=== PATIENT | male | born 1960 | race Hispanic/Latino ===

== ENCOUNTER 2020-12-11 16:39 | Emergency (ER) | payer OTHER, MEDICAID, SELFPAY ==
[2020-12-11 16:46] VITALS: BP 146/81; PULSE 96; RESP 22; TEMP 36.9; O2SAT 97
--- NOTE | 2020-12-11 16:58 | ED_ITS ---
HPI - Back Pain/Injury <Kirill Rodas, DO - Last Filed: 12/12/20 14:47> General Chief Complaint: Back Pain/Injury Stated Complaint: back pain, cant move Time Seen by Provider: 12/11/20 16:58 Source: patient and family Mode of arrival: Wheelchair Limitations: no limitations History of Present Illness HPI Narrative: 60-year-old male nonsmoker with history of hyperlipidemia type 2 diabetes and hypertension presents with a chief complaint of acute on chronic low back pain. He has had problems with low back pain for many years and actually had an L&I claim years ago. He was pulling weeds in his garden a few days ago and felt a sudden pain in his lower back with radiation down his right leg. He states it is sharp and stabbing and significantly worse with motion while and improves slightly with rest. He has had no fever or chills, denies any specific trauma takes no blood thinners. He has no lower extremity weakness or foot drop. He denies the loss of control of bowel or bladder. He was seen and evaluated a few days ago at an outside facility, had a reported negative x- ray and was given prescriptions for Flexeril and tramadol. Denies improvement MD Complaint: back pain and back injury Onset (ago): day(s) Duration: constant Similar Symptoms Previously: Yes Location: lumbar spine Severity: moderate Quality: burning, sharp and stabbing Radiation: right leg Relieving factors: immobilization Exacerbating factors: movement and walking Context: while lifting and turning/twisting Associated symptoms: denies other symptoms Related Data Home Medications Medication Instructions Recorded Confirmed gabapentin [Neurontin] 300 mg PO TID #0 04/06/16 glyburide 5 mg PO QDAY #0 04/06/16 hydrocodone-acetaminophen [Vicodin 1 tab PO Q4HP PRN #0 tab 04/06/16 ES] lisinopril 20 mg PO QDAY #0 04/06/16 metformin [Glucophage XR] 500 mg PO QDAY #0 04/06/16 oxycodone [OxyContin] 10 mg #0 04/06/16 simvastatin 40 mg PO QDAY #0 04/06/16 Previous Rx's Medication Instructions Recorded ketorolac 10 mg PO Q6HP PRN #20 tab 04/06/16 hydrocodone-acetaminophen 1 tab PO Q6H PRN #12 tab 12/11/20 prednisone 40 mg PO DAILY 6 Days #12 tab 12/11/20 Allergies Allergy/AdvReac Type Severity Reaction Status Date / Time No Known Drug Allergies Allergy Verified 12/11/20 17:37 Review of Systems <Kirill Rodas DO - Last Filed: 12/12/20 14:47> Constitutional Constitutional: Denies chills, Denies fatigue, Denies fever(s), Denies frequent falls, Denies lethargy and Denies weakness Eyes Eyes: Denies change in vision, Denies eye discharge, Denies irritation and Den ies loss of vision ENT Ears, Nose, Mouth, and Throat: Denies change in voice, Denies dizziness, Denies neck pain, Denies sore throat and Denies throat swelling Cardiovascular Cardiovascular: Denies chest pain, Denies irregular heart rhythm, Denies lightheadedness, Denies palpitations, Denies dyspnea, Denies dyspnea on exertion and Denies orthopnea Respiratory Respiratory: Denies cough, Denies dyspnea, Denies dyspnea on exertion and Denies wheezing Gastrointestinal Gastrointestinal: Denies abdominal pain, Denies change in bowel habits, Denies diarrhea, Denies nausea and Denies vomiting Musculoskeletal Musculoskeletal: Reports back pain, Denies neck pain and Denies numbness Integumentary/Breasts Skin/Breast: Denies pruritus, Denies erythema, Denies rash and Denies wounds Neurologic Neurologic: Denies behavioral changes, Denies confusion, Denies dizziness, Denies frequent falls, Denies loss of vision, Denies numbness and Denies weakness Psychiatric Psychiatric: Denies anxiety, Denies behavioral changes, Denies confusion, Denies depression, Denies homicidal ideation and Denies suicidal ideation Endocrine Endocrine: Denies fatigue, Denies flushing and Denies palpitations Hematologic/Lymphatic Hematologic/Lymphatic: Denies easy bruising Allergic/Immunologic Allergic/Immunologic: Denies urticaria, Denies throat swelling and Denies wheezing Patient History <Kirill Rodas DO - Last Filed: 12/12/20 14:47> Social History Smoking Status: Never smoker Smoking Status: Never smoker Exam <Kirill Rodas DO - Last Filed: 12/12/20 14:47> Narrative Exam Narrative: GENERAL: [60] year old patient appears stated age. Well- developed patient, in mild distress. Obviously uncomfortable, significant pain with minimal motion, able to stand under his own power HEAD: Atraumatic. Normocephalic. EYES: Pupils equal round and reactive. Extraocular motions intact. No scleral icterus. No injection or drainage. ENT: Nose without bleeding, purulent drainage. Throat without erythema, to nsillar hypertrophy or exudate. Airway patent. NECK: Trachea midline. Non tender CARDIOVASCULAR: Regular rate and rhythm without murmurs, gallops, or rubs. RESPIRATORY: Clear to auscultation. Breath sounds equal bilaterally. No wheezes, rales, or rhonchi. GASTROINTESTINAL: Abdomen soft, non-tender, nondistended. : testicular exam while standing, no swelling, redness, pain, evidence of hernia. EXTREMITIES: No edema or joint tenderness. BACK: type soldering machine tender but free of any obvious external abnormalities. Patient exam notes decreased range of motion and muscle spasm, but no CVA tenderness, or vertebral point tenderness. There are no symptoms of cauda equina such as saddle anesthesia, and decreased reflexes, decreased sensation or strength. NEURO: AOx3. SKIN: No rash or erythema of visible areas Initial Vital Signs Initial Vital Signs: Vital Signs Temperature 98.4 F 12/11/20 16:46 Pulse Rate 96 H 12/11/20 16:46 Respiratory Rate 22 12/11/20 16:46 Blood Pressure 146/81 H 12/11/20 16:46 Pulse Oximetry 97 12/11/20 16:46 <Tim Anderson DO - Last Filed: 12/12/20 05:05> Initial Vital Signs Initial Vital Signs: Vital Signs Temperature 98.4 F 12/11/20 16:46 Pulse Rate 96 H 12/11/20 16:46 Respiratory Rate 22 12/11/20 16:46 Blood Pressure 146/81 H 12/11/20 16:46 Pulse Oximetry 97 12/11/20 16:46 Course <Kirill Rodas DO - Last Filed: 12/12/20 14:47> Orders Ordered: Discontinued Medications Gabapentin (Gabapentin 300 Mg Capsule) 300 mg PO NOW ONE Stop: 12/11/20 17:17 Last Admin: 12/11/20 17:38 Dose: 300 mg Documented by: COLTEN Hydromorphone HCl (Hydromorphone 1 Mg Inj) 1 mg IM NOW ONE Stop: 12/11/20 17:17 Last Admin: 12/11/20 17:37 Dose: 1 mg Documented by: COLTEN Prednisone (Prednisone 20 Mg Tablet) 60 mg PO NOW ONE Stop: 12/11/20 17:17 Last Admin: 12/11/20 17:38 Dose: 60 mg Documented by: COLTEN Vital Signs Vital signs: Vital Signs - 8 hr 12/11/20 21:38 Pulse Rate 80 Respiratory Rate 20 Blood Pressure 142/90 H Pulse Oximetry 98 <Tim Anderson DO - Last Filed: 12/12/20 05:05> Orders Ordered: Discontinued Medications Gabapentin (Gabapentin 300 Mg Capsule) 300 mg PO NOW ONE Stop: 12/11/20 17:17 Last Admin: 12/11/20 17:38 Dose: 300 mg Documented by: COLTEN Hydromorphone HCl (Hydromorphone 1 Mg Inj) 1 mg IM NOW ONE Stop: 12/11/20 17:17 Last Admin: 12/11/20 17:37 Dose: 1 mg Documented by: COLTEN Prednisone (Prednisone 20 Mg Tablet) 60 mg PO NOW ONE Stop: 12/11/20 17:17 Last Admin: 12/11/20 17:38 Dose: 60 mg Documented by: COLTEN Vital Signs Vital signs: Vital Signs - 8 hr 12/11/20 21:38 Pulse Rate 80 Respiratory Rate 20 Blood Pressure 142/90 H Pulse Oximetry 98 MDM - Back Pain/Injury <Kirill Rodas DO - Last Filed: 12/12/20 14:47> Lab Data Result diagrams: 12/11/20 18:05 12/11/20 18:05 Labs: Lab Results 12/11/20 12/11/20 Range/Units 18:05 18:05 WBC 9.6 (4.5-11.0) X10^3/uL RBC 4.29 L (4.5-5.9) X10^6/uL Hgb 13.2 L (13.5-17.5) g/dL Hct 38.3 L (41-53) % MCV 89.4 (80-100) fL MCH 30.9 (26-34) PG MCHC 34.5 (30-36) % RDW 13.3 (11.6-14.8) % Plt Count 218 (150-400) X10^3/uL Neut % (Auto) 52.5 (50-75) % Lymph % (Auto) 38.1 (25-40) % [place] % (Auto) 6.6 (3-14) % Eos % (Auto) 2.0 (2-4) % Baso % (Auto) 0.8 (0-2) % Neut # (Auto) 5000 (7775-5253) /uL Lymph # (Auto) 3700 (6895-7804) /uL [place] # (Auto) 600 (0-900) /uL Eos # (Auto) 200 (0-450) /uL Baso # (Auto) 100 (0-100) /uL Sodium 138 (137-145) mmol/L Potassium 4.6 (3.4-5.1) mmol/L Chloride 104 (98-107) mmol/L Carbon Dioxide 25 (22-32) mmol/L BUN 19 (9-20) mg/dL Creatinine 0.82 (0.66-1.25) mg/dL Estimated GFR > 60.0 (>60) mL/min BUN/Creatinine Ratio 23.2 H (6-22) Glucose 97 (80-110) mg/dL Calcium 9.2 (8.4-10.2) mg/dL Total Bilirubin 0.4 (0.2-1.3) mg/dL AST 26 (17-59) IU/L ALT 24 (<50) IU/L Alkaline Phosphatase 58 (38-126) U/L Total Protein 7.1 (6.3-8.2) g/dL Albumin 4.2 (3.5-5.0) g/dL Globulin 2.9 (1.7-4.1) g/dL Albumin/Globulin Ratio 1.4 (1.0-2.8) Urine Dip Bedside Urine Glucose Negative Bedside Urine Bilirubin - Negative Bedside Urine Ketone - Negative Urine Specific [place] 1.020 Bedside Urine Occult Blood +/- Bedside Urine pH 6.0 Bedside Urine Protein - Negative Bedside Urine Urobilinogen - Negative Bedside Urine Nitrite - Negative Bedside Urine Leukocytes - Negative Esterase <Tim Anderson DO - Last Filed: 12/12/20 05:05> Lab Data Labs: Lab Results 12/11/20 12/11/20 Range/Units 18:05 18:05 WBC 9.6 (4.5-11.0) X10^3/uL RBC 4.29 L (4.5-5.9) X10^6/uL Hgb 13.2 L (13.5-17.5) g/dL Hct 38.3 L (41-53) % MCV 89.4 (80-100) fL MCH 30.9 (26-34) PG MCHC 34.5 (30-36) % RDW 13.3 (11.6-14.8) % Plt Count 218 (150-400) X10^3/uL Neut % (Auto) 52.5 (50-75) % Lymph % (Auto) 38.1 (25-40) % [place] % (Auto) 6.6 (3-14) % Eos % (Auto) 2.0 (2-4) % Baso % (Auto) 0.8 (0-2) % Neut # (Auto) 5000 (7202-1652) /uL Lymph # (Auto) 3700 (0700-6624) /uL [place] # (Auto) 600 (0-900) /uL Eos # (Auto) 200 (0-450) /uL Baso # (Auto) 100 (0-100) /uL Sodium 138 (137-145) mmol/L Potassium 4.6 (3.4-5.1) mmol/L Chloride 104 (98-107) mmol/L Carbon Dioxide 25 (22-32) mmol/L BUN 19 (9-20) mg/dL Creatinine 0.82 (0.66-1.25) mg/dL Estimated GFR > 60.0 (>60) mL/min BUN/Creatinine Ratio 23.2 H (6-22) Glucose 97 (80-110) mg/dL Calcium 9.2 (8.4-10.2) mg/dL Total Bilirubin 0.4 (0.2-1.3) mg/dL AST 26 (17-59) IU/L ALT 24 (<50) IU/L Alkaline Phosphatase 58 (38-126) U/L Total Protein 7.1 (6.3-8.2) g/dL Albumin 4.2 (3.5-5.0) g/dL Globulin 2.9 (1.7-4.1) g/dL Albumin/Globulin Ratio 1.4 (1.0-2.8) Urine Dip Bedside Urine Glucose Negative Bedside Urine Bilirubin - Negative Bedside Urine Ketone - Negative Urine Specific [place] 1.020 Bedside Urine Occult Blood +/- Bedside Urine pH 6.0 Bedside Urine Protein - Negative Bedside Urine Urobilinogen - Negative Bedside Urine Nitrite - Negative Bedside Urine Leukocytes - Negative Esterase Imaging Data lumbat ct: Radiologist's Impression: [address] [id number] Scan ReportSigned Patient: Roldan Bro CMR#: [id number]: 8Acct:[id number]/Sex: 60 / MDate of Service: 12/11/20Loc: EDAccession Number: [id number] Procedure: CT lumbar spine w con Ordering Provider: Kirill Rodas D.O. PROCEDURE: CT LUMBAR SPINE W CON INDICATIONS: severe radicular lumbar pain, urinary retention TECHNIQUE: After the administration of intravenous Isovue contrast, 3 mm thick sections acquired through the levels of interest. Sagittal and coronal reformats were then constructed. For radiation dose reduction, the following was used: automated exposure control. COMPARISON: [facility], CT, CT ANGIO CHEST PE, 07/13/2020, 13:20. FINDINGS: Image quality: Excellent. Bones: There is generalized degenerative disc height reduction that is [id number] in severity but without subluxation. Facet osteoarthritis also is present, with facet hyperostosis. At T12-L1 there is disc height reduction and a mild posterior transverse broad- base disc bulge. Foraminal stenosis is present, [id number] in severity, symmetric bilaterally. At L1-L2 there is a mild degree of degenerative disc height reduction, and mild to moderate facet osteoarthritis with foraminal stenosis that appears [id number], symmetric bilaterally. At L2-L3 only minimal disc height reduction is present and mild facet osteoarthritis. Left greater than right mild foraminal stenosis is present as result. At L3-L4 there is a slight degree of degenerative disc height reduction and mild facet osteoarthritis without spinal or foraminal stenosis. At L4-L5 there is moderate facet osteoarthritis and bilateral foraminal stenosis associated with a posterior transverse disc bulge that is greater on the right than the left, and this results in moderate right and mild left foraminal stenosis and no concentric spinal stenosis. At L5-S1 there is a moderate degree of degenerative disc height reduction and moderately severe left greater than right facet osteoarthritis with near severe left and moderately severe right foraminal stenosis and concentric spinal stenosis, moderate in severity. Soft tissues: No mass or hematoma found. IMPRESSION: Multilevel degenerative disc disease and facet osteoarthritis, with both symmetric and asymmetric foraminal stenosis as discussed in detail by level in the body of the report above. Multilevel nerve root impingement likely is present. MR scanning allows more accurate assessment of disc bulge and herniation for findings, and may be warranted based on the imaging findings of this CT scan. Prior MRI of the LS spine has been obtained for comparison. Dictated by: Abran Moser M.D. on 12/11/2020 at 19:18 Approved by: Abran Moser M.D. on 12/11/2020 at 19:23 MDM Narrative Medical decision making narrative: Dr anderson: Received turned over from Dr. Rodas waiting on results of CT scan lumbar spine which subsequently showed degenerative disc disease. I reviewed the patient's history and physical. I performed my own independent exam. The patient reported improvement of symptoms after medications here in the emergency department. Symptoms are isolated to the lateral aspect of his right leg that extend down to his foot. He has no saddle anesthesia. No testicular pain. The urinary retention is somewhat concerning given his low back pain and the concern for cauda equina however I do have low suspicion of this based on his exam. The urinary retention would be the only real concern for cauda equine however the rest of his exam is not consistent with it. Had a discussion with him regarding the [place] catheter. I did given the option of leaving the catheter in and the risks and benefits of this. Also gave the option of removing the catheter the risks and benefits of this as well. After this discussion he opted to have the catheter removed. I did inform him he needed talk with his primary doctor regarding both the symptoms to include his back pain and also the urinary issues. He was given strict return precautions he expressed understanding and agreement. Discharge Plan Departure Patient Disposition: Home Clinical Impression: Lumbar back pain, Acute urinary retention Instructions: DI for Low Back Pain Activity Restrictions/Additional Instructions: I recommend that you stop taking the Flexeril/cyclobenzaprine. This medicine is a muscle relaxer and does not seem to be helping your symptoms. The tramadol/Ultram is a pain medication and I recommend that you continue taking this. The pain medicine you were given this evening is for use if the tramadol is not working. We will also send you home with steroids for the next 6 days. You will take this 1 time a day. I recommend that tomorrow you contact your primary doctor to discuss further workup of your back pain to include the indications for an MRI and also to discuss the urinary retention that you had today. Return to the emergency department for any new or worsening symptoms Prescriptions: New prednisone 20 mg tablet 40 mg PO DAILY 6 Days Qty: 12 RF: 0 hydrocodone-acetaminophen 5-325 mg tablet 1 tab PO Q6H PRN (Reason: pain) Qty: 12 RF: 0 No Action lisinopril 20 MG tablet 20 mg PO QDAY Qty: 0 RF: 0 oxycodone [OxyContin] 40 MG tablet,oral only,ext.rel.12 hr 10 mg Qty: 0 RF: 0 simvastatin 40 MG tablet 40 mg PO QDAY Qty: 0 RF: 0 gabapentin [Neurontin] 300 MG capsule 300 mg PO TID Qty: 0 RF: 0 metformin [Glucophage XR] 500 MG tablet extended release 24 hr 500 mg PO QDAY Qty: 0 RF: 0 glyburide 5 MG tablet 5 mg PO QDAY Qty: 0 RF: 0 hydrocodone-acetaminophen [Vicodin ES] 7.5 MG/300 MG tablet 1 tab PO Q4HP PRNQty: 0 RF: 0 ketorolac 10 MG tablet 10 mg PO Q6HP PRNQty: 20 RF: 0 Referrals: Miranda Montgomery ARNP [Primary Care Provider] -
[2020-12-11] MEDS: HYDROMORPHONE 1 MG INJ IM (17:37)
[2020-12-11] MEDS: predniSONE 20 MG TABLET 60 MG PO (17:38)
[2020-12-11] MEDS: GABAPENTIN 300 MG CAPSULE PO (17:38)
--- NOTE | 2020-12-11 17:54 | DI.CT.S_ITS ---
PROCEDURE: CT LUMBAR SPINE W CON INDICATIONS: severe radicular lumbar pain, urinary retention TECHNIQUE: After the administration of intravenous Isovue contrast, 3 mm thick sections acquired through the levels of interest. Sagittal and coronal reformats were then constructed. For radiation dose reduction, the following was used: automated exposure control. COMPARISON: [facility], CT, CT ANGIO CHEST PE, 07/13/2020, 13:20. FINDINGS: Image quality: Excellent. Bones: There is generalized degenerative disc height reduction that is [id number] in severity but without subluxation. Facet osteoarthritis also is present, with facet hyperostosis. At T12-L1 there is disc height reduction and a mild posterior transverse broad-base disc bulge. Foraminal stenosis is present, [id number] in severity, symmetric bilaterally. At L1-L2 there is a mild degree of degenerative disc height reduction, and mild to moderate facet osteoarthritis with foraminal stenosis that appears [id number], symmetric bilaterally. At L2-L3 only minimal disc height reduction is present and mild facet osteoarthritis. Left greater than right mild foraminal stenosis is present as result. At L3-L4 there is a slight degree of degenerative disc height reduction and mild facet osteoarthritis without spinal or foraminal stenosis. At L4-L5 there is moderate facet osteoarthritis and bilateral foraminal stenosis associated with a posterior transverse disc bulge that is greater on the right than the left, and this results in moderate right and mild left foraminal stenosis and no concentric spinal stenosis. At L5-S1 there is a moderate degree of degenerative disc height reduction and moderately severe left greater than right facet osteoarthritis with near severe left and moderately severe right foraminal stenosis and concentric spinal stenosis, moderate in severity. Soft tissues: No mass or hematoma found. IMPRESSION: Multilevel degenerative disc disease and facet osteoarthritis, with both symmetric and asymmetric foraminal stenosis as discussed in detail by level in the body of the report above. Multilevel nerve root impingement likely is present. MR scanning allows more accurate assessment of disc bulge and herniation for findings, and may be warranted based on the imaging findings of this CT scan. Prior MRI of the LS spine has been obtained for comparison. Dictated by: Abran Moser M.D. on 12/11/2020 at 19:18 Approved by: Abran Moser M.D. on 12/11/2020 at 19:23
[2020-12-11 18:39] LABS: Add Manual Diff / Slide Review NO; Basophils Absolute Auto 100 /uL (0-100); Basophils Percent Auto 0.8 % (0-2); Eosinophils Absolute Auto 200 /uL (0-450); Hematocrit 38.3 % (41-53); Hemoglobin 13.2 g/dL (13.5-17.5); Lymphocytes Absolute Auto 3700 /uL (1100-4500); Lymphocytes Percent Auto 38.1 % (25-40); Mean Corpuscular HGB Conc 34.5 % (30-36); Mean Corpuscular Hemoglobin 30.9 PG (26-34); Mean Corpuscular Volume 89.4 fL (80-100); Monocytes Absolute Auto 600 /uL (0-900); Monocytes Percent Auto 6.6 % (3-14); Neutrophils Absolute Auto 5000 /uL (1500-7000); Neutrophils Percent Auto 52.5 % (50-75); Platelet Count 218 X10^3/uL (150-400); Red Blood Cell Count 4.29 X10^6/uL (4.5-5.9); Red Cell Distribution Width 13.3 % (11.6-14.8); White Blood Cell Count 9.6 X10^3/uL (4.5-11.0)
[2020-12-11 18:43] LABS: Alanine Aminotransferase 24 IU/L (<50); Albumin 4.2 g/dL (3.5-5.0); Albumin Globulin Ratio 1.4 (1.0-2.8); Alkaline Phosphatase 58 U/L (38-126); Aspartate Aminotransferase 26 IU/L (17-59); BUN Creatinine Ratio 23.2 (6-22); Bilirubin Total 0.4 mg/dL (0.2-1.3); Blood Urea Nitrogen 19 mg/dL (9-20); Calcium 9.2 mg/dL (8.4-10.2); Carbon Dioxide 25 mmol/L (22-32); Chloride 104 mmol/L (98-107); Estimated Glomerular Filt Rate > 60.0 mL/min (>60); Globulin 2.9 g/dL (1.7-4.1); Glucose 97 mg/dL (80-110); HEMOLYSIS 41 (0-50); Potassium 4.6 mmol/L (3.4-5.1); Sodium 138 mmol/L (137-145); Total Protein 7.1 g/dL (6.3-8.2)
[2020-12-11 21:38] VITALS: BP 142/90; PULSE 80; RESP 20; O2SAT 98
== END 2020-12-11 21:44 | disposition home or self-care (01) ==
PROVIDERS: Emergency Medicine; Emergency Provider Emergency Medicine; PCP Nurse Practitioner
DX: M54.5 Low back pain (principal); R33.8 Other retention of urine
CPT/HCPCS: 36415; 51702; 51798; 72132; 80053; 81003; 85025; 96372; 99284; J1170

== ENCOUNTER 2022-02-11 03:24 | Emergency (ER) | payer OTHER, MEDICAID, SELFPAY ==
[2022-02-11] VITALS (12 sets, daily range): BP systolic 98–150; BP diastolic 51–70; PULSE 62–79; RESP 10–22; TEMP 36.6; O2SAT 95–99
--- NOTE | 2022-02-11 04:06 | ED.GENADULT ---
HPI - General Adult General Chief complaint: Abdominal Pain Stated complaint: abd. pain Time Seen by Provider: 02/11/22 03:30 Source: patient and family Mode of arrival: Ambulatory History of Present Illness HPI narrative: 62-year-old gentleman with a history of diabetes, hyperlipidemia, hypertension, reflux, anemia and lumbar radiculopathy who was admitted to [facility] with acute pancreatitis on February 04. He had upper endoscopy on February 07 with findings of mild gastritis. With no obvious reason for pancreatitis an MRCP as well as IgG for an LONG panel were ordered. MRCP revealed a pancreatic cyst with recommendation from Gastroenterology to follow and repeat MRI in 1 year. On discharge was suspected that the linagliptin he had been taking for for diabetes may have caused the acute pancreatitis. Was discharged home on the and presents to [facility] complaining of severe diarrhea starting on the with increasing diffuse abdominal pain and bloating. He has not noted any blood in the stool he denies fever, cough, palpitations, headaches. Med list on discharge includes pantoprazole 40 mg daily, tamsulosin 0.4 mg daily, atorvastatin 40 mg daily, cyclobenzaprine t.i.d. as needed back pain, gabapentin 600 mg daily, glyburide 500 mg daily, lisinopril 20 mg daily, metformin 1000 mg b.i.d. with meals, Related Data Home Medications Medication Instructions Recorded Confirmed gabapentin 300 mg capsule 300 mg PO TID ##0 04/06/16 (Neurontin) glyburide 5 mg tablet 5 mg PO QDAY ##0 04/06/16 hydrocodone 7.5 mg-acetaminophen 1 tab PO Q4HP PRN #0 tabs 04/06/16 300 mg tablet (Vicodin ES) lisinopril 20 mg tablet 20 mg PO QDAY ##0 04/06/16 metformin 500 mg tablet,extended 500 mg PO QDAY ##0 04/06/16 release 24 hr (Glucophage XR) oxycodone 40 mg tablet,crush 10 mg ##0 04/06/16 resistant,extended release 12 hr (OxyContin) simvastatin 40 mg tablet 40 mg PO QDAY ##0 04/06/16 Previous Rx's Medication Instructions Recorded ketorolac 10 mg tablet 10 mg PO Q6HP PRN #20 tabs 04/06/16 hydrocodone 5 mg-acetaminophen 325 1 tab PO Q6H PRN pain #12 tabs 12/11/20 mg tablet Allergies Allergy/AdvReac Type Severity Reaction Status Date / Time No Known Drug Allergies Allergy Verified 12/11/20 17:37 Review of Systems Review of Systems Narrative: Remainder of complete review of systems is otherwise unremarkable except for that included in the HPI. Patient History Medical History (Updated 02/11/22 @ 06:46 by Lilibeth Mckeon MD) BPH (benign prostatic hyperplasia) Chronic GERD Diabetes Hyperlipidemia Hypertension Lumbar radiculopathy Pancreatic cyst Social History Smoking Status: Never smoker Smoking Status: Never smoker alcohol intake frequency: 0-2 drinks per day Substance Use Type: does not use Exam Initial Vital Signs Initial Vital Signs: Vital Signs Temperature 97.8 F 02/11/22 03:38 Pulse Rate 79 02/11/22 03:38 Respiratory Rate 18 02/11/22 03:38 Blood Pressure 149/70 H 02/11/22 03:38 Pulse Oximetry 99 02/11/22 03:38 Oxygen Delivery Method 02/11/22 03:38 Course Orders Ordered: ED Orders 02/11/22 03:50 Complete Blood Count AUTO DIFF Stat Comprehensive Metabolic Panel Stat Lipase Stat 02/11/22 03:55 GI Panel (Film Array) Stat 02/11/22 04:00 EKG-12 Lead Stat Hydromorphone HCl (Hydromorphone 0.5 Mg Inj) 0.5 mg IV Q15MIN PRN PRN Reason: Pain, Last Admin: 02/11/22 06:21 Dose: 0.5 mg Documented By: Admin: 02/11/22 04:51 Dose: 0.5 mg Documented By: JOCELYNE Sodium Chloride (Normal Saline 0.9%) 1,000 mls @ 1,000 mls/hr IV BOLUS ONE Stop: 02/11/22 07:11 Last Admin: 02/11/22 06:13 Dose: 1,000 mls/hr Documented By: CATIA Discontinued Medications Sodium Chloride (Normal Saline 0.9%) 1,000 mls @ 1,000 mls/hr IV BOLUS ONE Stop: 02/11/22 05:46 Last Infusion: 02/11/22 06:10 Dose: 0 mls/hr Documented By: Admin: 02/11/22 04:52 Dose: 1,000 mls/hr Documented By: KP Vital Signs Vital signs: Vital Signs - 8 hr 02/11/22 03:38 02/11/22 04:07 02/11/22 04:10 Temperature 97.8 F Pulse Rate 79 74 72 Respiratory Rate 18 21 Blood Pressure 149/70 H Pulse Oximetry 99 97 96 Oxygen Delivery Method Room Air 02/11/22 04:10 02/11/22 04:30 02/11/22 05:00 Temperature Pulse Rate 78 Respiratory Rate 22 Blood Pressure 125/62 99/65 Pulse Oximetry 95 Oxygen Delivery Method 02/11/22 05:00 02/11/22 05:18 02/11/22 05:18 Temperature Pulse Rate 71 68 Respiratory Rate 10 L Blood Pressure 118/66 Pulse Oximetry 97 98 Oxygen Delivery Method 02/11/22 05:30 02/11/22 05:30 02/11/22 06:00 Temperature Pulse Rate 66 Respiratory Rate 19 Blood Pressure 105/59 L 98/51 L Pulse Oximetry 96 Oxygen Delivery Method 02/11/22 06:00 Temperature Pulse Rate 68 Respiratory Rate 19 Blood Pressure Pulse Oximetry 97 Oxygen Delivery Method Medical Decision Making Lab Data Result diagrams: 02/11/22 03:50 02/11/22 03:50 Labs: Lab Results 02/11/22 02/11/22 02/11/22 Range/Units 03:50 03:50 03:55 WBC 7.2 (4.5-11.0) X10^3/uL RBC 4.54 (4.5-5.9) X10^6/uL Hgb 13.9 (13.5-17.5) g/dL Hct 40.3 L (41-53) % MCV 88.7 (80-100) fL MCH 30.7 (26-34) PG MCHC 34.5 (30-36) % RDW 13.7 (11.6-14.8) % Plt Count 245 (150-400) X10^3/uL Neut % (Auto) 61.8 (50-75) % Lymph % (Auto) 27.5 (25-40) % [place] % (Auto) 7.3 (3-14) % Eos % (Auto) 2.6 (2-4) % Baso % (Auto) 0.8 (0-2) % Neut # (Auto) 4400 (6638-6280) /uL Lymph # (Auto) 2000 (1530-8605) /uL [place] # (Auto) 500 (0-900) /uL Eos # (Auto) 200 (0-450) /uL Baso # (Auto) 100 (0-100) /uL Sodium 137 (137-145) mmol/L Potassium 4.9 (3.4-5.1) mmol/L Chloride 105 (98-107) mmol/L Carbon Dioxide 24 (22-32) mmol/L BUN 27 H (9-20) mg/dL Creatinine 1.50 H (0.66-1.25) mg/dL Estimated GFR 52 L (>60) mL/min BUN/Creatinine Ratio 18.0 (6-22) Glucose 115 H (80-110) mg/dL Calcium 8.9 (8.4-10.2) mg/dL Total Bilirubin 0.4 (0.2-1.3) mg/dL AST 30 (17-59) IU/L ALT 40 (<50) IU/L Alkaline Phosphatase 84 (38-126) U/L Total Protein 8.1 (6.3-8.2) g/dL Albumin 4.5 (3.5-5.0) g/dL Globulin 3.6 (1.7-4.1) g/dL Albumin/Globulin Ratio 1.3 (1.0-2.8) Lipase 128 (23-300) U/L Stl C. cayetanensis PCR Not detected (Not Detect) Stool Rotavirus (PCR) Not detected (Not Detect) Stool Adenovirus (PCR) Not detected (Not Detect) Stool Astrovirus (PCR) Not detected (Not Detect) Stool Cryptosporidium PCR Not detected (Not Detect) Stl E.coli Shiga Tox PCR Not detected (Not Detect) St Sh/Enteroin Ecoli PCR Not detected (Not Detect) Stool E coli O157 PCR Not Reportable Stl Enterotoxigenic E PCR Not detected (Not Detect) Stool EPEC (PCR) Detected H (Not Detect) Stl E. histolytica PCR Not detected (Not Detect) Stool Giardia Lamblia PCR Not detected (Not Detect) Stool Sapovirus (PCR) Not detected (Not Detect) Stl P. shigelloides PCR Not detected (Not Detect) St Y.enterocolitica PCR Not detected (Not Detect) Stool Vibrio (PCR) Not detected (Not Detect) Stl Vibrio cholerae PCR Not detected (Not Detect) Stl Enteroaggr Ecoli PCR Not detected (Not Detect) Stl Norovirus GI/GII PCR Not detected (Not Detect) Campylobacter (PCR) Not detected (Not Detect) C. difficile Tox (PCR) Not detected (Not Detect) Salmonella (PCR) Not detected (Not Detect) Urine Dip Bedside Urine Glucose Negative Bedside Urine Bilirubin - Negative Bedside Urine Ketone - Negative Urine Specific [place] 1.015 Bedside Urine Occult Blood +/- Bedside Urine pH 6.0 Bedside Urine Protein - Negative Bedside Urine Urobilinogen -0.2 Bedside Urine Nitrite - Negative Bedside Urine Leukocytes - Negative Esterase Point of care testing: Urine Dip Bedside Urine Glucose Negative Bedside Urine Bilirubin - Negative Bedside Urine Ketone - Negative Urine Specific [place] 1.015 Bedside Urine Occult Blood +/- Bedside Urine pH 6.0 Bedside Urine Protein - Negative Bedside Urine Urobilinogen -0.2 Bedside Urine Nitrite - Negative Bedside Urine Leukocytes - Negative Esterase ECG Data Interpretation: Sinus rhythm at a rate of 71 Normal intervals, normal axis No acute ischemic changes MDM Narrative Medical decision making narrative: 62-year-old gentleman with recent hospitalization for pancreatitis diabetic medication with incidentally noted pancreatic cyst had been feeling better until he developed perfuse diarrhea with mild abdominal pain. He does not have a surgical abdomen but bili is mildly distended. Stool test returns enteropathogenic E coli. Brief review suggests that antibiotic treatment with fluoroquinolone or single does 1 g azithromycin is warranted in the setting of severe diarrhea, blood, significant dehydration. In light of his significant dehydration and increased creatinine will go ahead and treat him with 1 g of oral azithromycin along with Zofran. He is able to eat and drink at this point. He has received 2 L of fluid. I believe he is safe for home discharge with continued supportive measures and will encourage him to have a very low threshold for returning to the emergency department if symptoms are not improving. At this time he is able to eat and drink. His family has recently gotten him some [id number] electrolyte solution with low sugar because of his diabetes. I believe he will be safe for home discharge Discharge Plan Departure Patient Disposition: Home Clinical Impression: Enterotoxigenic Escherichia coli infection, Acute dehydration Abdominal pain Qualifiers: Abdominal location: generalized Qualified Code(s): R10.84 - Generalized abdominal pain Diarrhea Qualifiers: Diarrhea type: unspecified type Qualified Code(s): R19.7 - Diarrhea, unspecified Instructions: DI for Diarrhea and Traveler's Diarrhea -- Adult Activity Restrictions/Additional Instructions: Thank you for coming in tonight You have an E coli bacteria that is causing your diarrhea. I have given you a single dose of antibiotic and you do not need any additional antibiotics. It is important that you continue drinking fluids to stay hydrated. Using fluids that have extra electrolytes such as Gatorade, Pedialyte or similar is going to be helpful. If you develop fevers, no blood in your diarrhea, the diarrhea or abdominal pain is worsening or you develop new symptoms, you need to return to the emergency department Expect the diarrhea to slow down over the next 2-3 days. As you begin to feel better you can add regular food back into your diet. For now, stick to a plain simple to digest diet. Think about plain white foods such as bananas, rice, applesauce, toast or tortillas until your stomach is significantly improved Prescriptions: No Action lisinopril 20 MG tablet 20 mg PO QDAY Qty: 0 oxycodone [OxyContin] 40 MG tablet,oral only,ext.rel.12 hr 10 mg Qty: 0 simvastatin 40 MG tablet 40 mg PO QDAY Qty: 0 gabapentin [Neurontin] 300 MG capsule 300 mg PO TID Qty: 0 metformin [Glucophage XR] 500 MG tablet extended release 24 hr 500 mg PO QDAY Qty: 0 glyburide 5 MG tablet 5 mg PO QDAY Qty: 0 hydrocodone-acetaminophen [Vicodin ES] 7.5 MG/300 MG tablet 1 tab PO Q4HP PRNQty: 0 ketorolac 10 MG tablet 10 mg PO Q6HP PRNQty: 20 0RF hydrocodone-acetaminophen 5-325 mg tablet 1 tab PO Q6H PRN (Reason: pain) Qty: 12 0RF Referrals: Miranda Montgomery ARNP [Primary Care Provider] -
[2022-02-11 04:13] LABS: Add Manual Diff / Slide Review NO; Basophils Absolute Auto 100 /uL (0-100); Basophils Percent Auto 0.8 % (0-2); Eosinophils Absolute Auto 200 /uL (0-450); Eosinophils Percent Auto 2.6 % (2-4); Hematocrit 40.3 % (41-53); Hemoglobin 13.9 g/dL (13.5-17.5); Lymphocytes Absolute Auto 2000 /uL (1100-4500); Lymphocytes Percent Auto 27.5 % (25-40); Mean Corpuscular HGB Conc 34.5 % (30-36); Mean Corpuscular Hemoglobin 30.7 PG (26-34); Mean Corpuscular Volume 88.7 fL (80-100); Monocytes Absolute Auto 500 /uL (0-900); Monocytes Percent Auto 7.3 % (3-14); Neutrophils Absolute Auto 4400 /uL (1500-7000); Neutrophils Percent Auto 61.8 % (50-75); Platelet Count 245 X10^3/uL (150-400); Red Blood Cell Count 4.54 X10^6/uL (4.5-5.9); Red Cell Distribution Width 13.7 % (11.6-14.8); White Blood Cell Count 7.2 X10^3/uL (4.5-11.0)
[2022-02-11 04:18] LABS: Alanine Aminotransferase 40 IU/L (<50); Albumin 4.5 g/dL (3.5-5.0); Albumin Globulin Ratio 1.3 (1.0-2.8); Alkaline Phosphatase 84 U/L (38-126); Aspartate Aminotransferase 30 IU/L (17-59); Bilirubin Total 0.4 mg/dL (0.2-1.3); Blood Urea Nitrogen 27 mg/dL (9-20); Calcium 8.9 mg/dL (8.4-10.2); Carbon Dioxide 24 mmol/L (22-32); Chloride 105 mmol/L (98-107); Estimated Glomerular Filt Rate 52 mL/min (>60); Globulin 3.6 g/dL (1.7-4.1); Glucose 115 mg/dL (80-110); HEMOLYSIS < 15 (0-50); Lipase 128 U/L (23-300); Potassium 4.9 mmol/L (3.4-5.1); Sodium 137 mmol/L (137-145); Total Protein 8.1 g/dL (6.3-8.2)
[2022-02-11] MEDS: HYDROMORPHONE 0.5 MG INJ IV ×2 (04:51→06:21)
[2022-02-11] MEDS: SODIUM CHLORIDE 0.9% 1,000 ML 1000 ML IV ×2 (04:52→06:13)
[2022-02-11 05:59] LABS: Adenovirus F 40/41 Not Detected (Not Detect); Astrovirus Not Detected (Not Detect); Campylobacter Not Detected (Not Detect); Clostridium difficile toxin AB Not Detected (Not Detect); Cryptosporidium Not Detected (Not Detect); Cyclospora cayetanensis Not Detected (Not Detect); Entamoeba histolytica Not Detected (Not Detect); Enteroaggregative E.coli Not Detected (Not Detect); Enteropathogenic E.coli Detected (Not Detect); Enterotoxigenic E.coli It/st Not Detected (Not Detect); Giardia lamblia Not Detected (Not Detect); Norovirus GI/GII Not Detected (Not Detect); Plesiomonsa shigelloides Not Detected (Not Detect); Rotavirus A Not Detected (Not Detect); Salmonella Not Detected (Not Detect); Sapovirus Not Detected (Not Detect); Shiga-like toxin-prod E.coli Not Detected (Not Detect); Shigella/Enteroinvasive E.coli Not Detected (Not Detect); Vibrio Not Detected (Not Detect); Vibrio cholerae Not Detected (Not Detect); Yersinia enterocolitica Not Detected (Not Detect)
[2022-02-11] MEDS: ONDANSETRON 4 MG/2 ML INJ IV (06:46)
[2022-02-11] MEDS: AZITHROMYCIN 250 MG TABLET 1000 MG PO (06:46)
== END 2022-02-11 07:51 | disposition home or self-care (01) ==
PROVIDERS: Emergency Provider Emergency Medicine; PCP Nurse Practitioner
DX: A04.1 Enterotoxigenic Escherichia coli infection (principal); R10.84 Generalized abdominal pain; E86.0 Dehydration
CPT/HCPCS: 36415; 80053; 81003; 83690; 85025; 87507; 93005; 93010; 96361; 96374; 96375; 96376; 99284; J1170; J2405